=== PATIENT | female | born 1975 | race African-American/Black ===

== ENCOUNTER 2020-11-06 13:58 | Emergency (ER) | payer MEDICARE, BC ==
[~2020-11-06] VITALS: Ht 177.8 cm; Wt 105.0 kg
[2020-11-06 15:42] VITALS: BP 128/77
== END 2020-11-06 15:48 | disposition home or self-care (01) ==
LOC: ED 13:58
DX: T44.7X1A Poisoning by beta-adrenoreceptor antagonists, accidental (unintentional), initial encounter (principal); T50.2X1A Poisoning by carbonic-anhydrase inhibitors, benzothiadiazides and other diuretics, accidental (unintentional), initial encounter; T47.1X1A Poisoning by other antacids and anti-gastric-secretion drugs, accidental (unintentional), initial encounter; T45.511A Poisoning by anticoagulants, accidental (unintentional), initial encounter; I10 Essential (primary) hypertension

== ENCOUNTER 2024-06-03 09:14 | Day surgery (SDC) | payer MEDICARE, BC ==
[~2024-06-03 09:14] MED LIST: ATENOLOL50 MG PO; MAXZIDE-25MG1 COMBO PO; NORVASC10 M1 PO; ROSUVASTATIN CA40 MG PO; VITAMIN D2000 UNI1 PO
[2024-06-03] MEDS ORDERED: LACTATED RINGER'S 1,000 ML IV ONE (09:17)
[2024-06-03] MEDS ORDERED: FAMOTIDINE 10MG/ML 2ML SDV IV ONE (09:17)
[2024-06-03 11:02] VITALS: BP 117/79
[2024-06-03] MEDS ORDERED: LIDOCAINE HCL 2% 2ML SDV IV ONE (13:02)
[2024-06-03] MEDS ORDERED: GLYCOPYRROLATE 0.2 MG/ML IV ONE (13:02)
[2024-06-03] MEDS ORDERED: PROPOFOL 200 MG/20 ML VIAL IV ONE (13:02)
== END 2024-06-03 11:20 | disposition home or self-care (01) ==
LOC: ENDO 09:14 → ORM 13:00 → ENDO 13:00
PROVIDERS: ATTEND Surgery
PROC: 0DJD8ZZ Inspection of Lower Intestinal Tract, Via Natural or Artificial Opening Endoscopic (ICD-10-PCS; principal; 2024-06-03)
DX: Z12.11 Encounter for screening for malignant neoplasm of colon (principal); K64.8 Other hemorrhoids; I10 Essential (primary) hypertension; Z80.0 Family history of malignant neoplasm of digestive organs
CPT/HCPCS: J1596